=== PATIENT | male | born 1995 | race American Indian/Alaskan Native ===

== ENCOUNTER 2019-08-20 14:26 | Emergency (ER) | payer SELFPAY ==
[2019-08-20 14:40] VITALS: BP 140/89
--- NOTE | 2019-08-20 15:31 | Emergency Department Report ---
ED ENT HPI - General Chief complaint: Upper Respiratory Infection Stated complaint: NASAL CONGESTION Time Seen by Provider: 08/20/19 14:54 Source: patient Mode of arrival: Ambulatory Limitations: No Limitations - History of Present Illness Initial comments: 24-year-old -[place] male patient presents with complaints of nasal congestion x3 days. He denies any fever/chills/sweats, facial pain/pressure, cough, shortness of breath, headache, sore throat, or ear pain. He states he has not tried any [id number] medications for his symptoms. Patient is requesting nasal saline and antibiotics. - Related Data Allergies Allergy/AdvReac Type Severity Reaction Status Date / Time No Known Allergies Allergy Verified 08/20/19 14:29 ED Dental HPI - General Chief complaint: Upper Respiratory Infection Stated complaint: NASAL CONGESTION Time Seen by Provider: 08/20/19 14:54 Source: patient Mode of arrival: Ambulatory Limitations: No Limitations - Related Data Allergies Allergy/AdvReac Type Severity Reaction Status Date / Time No Known Allergies Allergy Verified 08/20/19 14:29 ED Review of Systems ROS: Stated complaint: NASAL CONGESTION Other details as noted in HPI Constitutional: denies: chills, fever ENT: congestion. denies: ear pain, throat pain, dental pain Respiratory: denies: cough Skin: denies: rash, lesions Neurological: denies: headache ED Past Medical Hx - Past Medical History Previous Medical History?: No - Surgical History Past Surgical History?: No - Social History Smoking Status: Current Every Day Smoker Substance Use Type: Marijuana ED Physical Exam - General Limitations: No Limitations General appearance: alert, in no apparent distress - Head Head exam: Present: atraumatic, normocephalic - Eye Eye exam: Present: normal appearance - ENT ENT exam: Present: normal orophraynx, mucous membranes moist, TM's normal bilaterally, other (Erythema noted to nares and turbinates bilaterally with light green mucus/rhinorrhea. No tenderness to palpation noted of nose, frontal/maxillary sinuses.) - Neck Neck exam: Present: normal inspection, full ROM. Absent: lymphadenopathy - Respiratory Respiratory exam: Present: normal lung sounds bilaterally. Absent: respiratory distress - Cardiovascular Cardiovascular Exam: Present: regular rate, normal rhythm - Neurological Exam Neurological exam: Present: alert, oriented X3 - Psychiatric Psychiatric exam: Present: normal affect - Skin Skin exam: Present: warm, dry, intact, normal color. Absent: rash, cyanosis, diaphoretic, ecchymosis ED Course Vital Signs 08/20/19 14:31 Temperature 98.1 F Pulse Rate 97 H Respiratory 18 Rate Blood Pressure 140/89 O2 Sat by Pulse 100 Oximetry ED Medical Decision Making - Medical Decision Making Patient here with nasal congestion for the past 3 days. He denies any fever/chills/sweats. No tenderness noted to patient's sinuses on exam. His vitals are normal he is well-appearing. Patient is stable for outpatient treatment with [id number] medications. Recommend patient try an antihistamine, nasal saline, and Flonase as needed for his symptoms. Discussed signs and symptoms of worsening infection that should prompt immediate return to the ED. Recommend patient follows up with primary care provider in 7 days as needed. Critical care attestation.: If time is entered above; I have spent that time in minutes in the direct care of this critically ill patient, excluding procedure time. ED Disposition Clinical Impression: Nasal congestion Disposition: MED SCREENING EXAM-LEFT Is pt being admited?: No Condition: Stable Instructions: Allergic Rhinitis (ED) Additional Instructions: Recommend you purchase over the counter nasal saline (use 6 times daily) and loratadine (Claritin). Referrals: HEATHER MCGRATH MD [Staff Physician] - as needed
== END 2019-08-20 15:48 | disposition left against medical advice (07) ==
LOC: ED 14:26
DX: R09.81 Nasal congestion (principal); F17.200 Nicotine dependence, unspecified, uncomplicated; F12.90 Cannabis use, unspecified, uncomplicated
CPT/HCPCS: 99281

== ENCOUNTER 2019-09-05 12:50 | Emergency (ER) | payer SELFPAY ==
[2019-09-05 12:59] VITALS: BP 141/96
[2019-09-05] MEDS ORDERED: IPRATROPIUM/ALBUTEROL SULFATE 3 ML AMPUL.NEB IH ONE (13:17)
[2019-09-05] MEDS ORDERED: predniSONE 20 MG TAB PO ONE (13:17)
--- NOTE | 2019-09-05 13:17 | Emergency Department Report ---
Blank Doc - Documentation Documentation: 24-year-old male that presents with SOB, wheezing, and cough. This initial assessment/diagnostic orders/clinical plan/treatment(s) is/are subject to change based on patient's health status, clinical progression and re- assessment by fellow clinical providers in the ED. Further treatment and workup at subsequent clinical providers discretion. Patient/guardians urged not to elope from the ED as their condition may be serious if not clinically assessed and managed. Initial orders include: 1- Patient sent to [facility] for further evaluation and treatment 2- breathing treatment 3- CXR
--- NOTE | 2019-09-05 13:50 | XRay Report ---
CHEST 2 VIEWS INDICATION: MAIN: cough/wheezing X 2 DAYS; PT STATE HX OF ASTHMA AND SEASONAL ALLERGIES. COMPARISON: None FINDINGS: Support devices: None. Heart: Within normal limits. Lungs/pleura: No acute air space or interstitial disease. No pneumothorax. Additional findings: None. IMPRESSION: 1. No acute findings. Signer Name: Lakhwinder Benjamin MD Signed: 09/05/2019 1:45 PM Workstation Name: [id number]
== END 2019-09-05 15:04 | disposition left against medical advice (07) ==
LOC: ED 12:50
DX: R05 Cough (principal); R09.89 Other specified symptoms and signs involving the circulatory and respiratory systems; R51 Headache
CPT/HCPCS: 71046; 94640; 99283; J7512; 94644